=== PATIENT | male | born 2000 | race Caucasian/White ===

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

== ENCOUNTER 2023-10-05 21:19 | Emergency (ER) | payer MEDICAID, OTHER ==
[2023-10-05] MEDS: ONDANSETRON ODT 4 MG TABLET TL STA (22:22)
[2023-10-05] MEDS: SODIUM CHLORIDE 0.9% 1,000 ML IV STA (22:23)
[2023-10-05] MEDS: DROPERIDOL 5 MG/2 ML VIAL IVP STA (23:30)
[2023-10-05 23:44] VITALS: BP 140/65; O2SAT 96
[2023-10-06] MEDS ORDERED: PROMETHAZINE 25 MG/1 ML VIAL ONE (00:13)
[2023-10-06] MEDS: PROMETHAZINE INJ 25 MG in SODIUM CHLORIDE 0.9% 50 ML IV STA (00:16)
[2023-10-06] MEDS: SODIUM CHLORIDE 0.9% 1,000 ML IV STA (00:16)
--- NOTE | 2023-10-06 01:08 | ED Physician Documentation ---
PD HPI NVD - Stated complaint Stated Complaint: VOMITING - Chief complaint Chief Complaint: Abd Pain - History obtained from History obtained from: Patient - Additonal information Additional information: 23-year-old male presents by private vehicle from home for nausea, vomiting, generalized cramping abdominal pain since earlier this afternoon. No new or strange foods. States that similar thing happened 1 year ago. He was given IV fluids and antiemetics, diagnosed with dehydration, and sent home with antiemetics. Patient states this feels identical to when he was here 1 year ago. Review of Systems Constitutional: denies: Fever, Chills Cardiac: denies: Chest pain / pressure, Palpitations, Calf pain Respiratory: denies: Dyspnea, Cough, Wheezing GI: reports: Abdominal Pain, Nausea, Vomiting : denies: Dysuria, Frequency, Hesitancy PD PAST MEDICAL HISTORY - Past Medical History Cardiovascular: None Respiratory: None Endocrine/Autoimmune: None GI: None - Past Surgical History Past Surgical History: No - Present Medications Home Medications: Ambulatory Orders Medication Instructions Recorded Confirmed Ondansetron Odt [Zofran] 4 mg TL Q6H PRN #10 tablet 08/09/22 Promethazine Supp [Phenergan Supp] 25 mg NV Q6H PRN #3 supp 08/09/22 Ondansetron Odt [Zofran] 4 mg TL Q6H PRN #30 tablet 10/06/23 Promethazine [Phenergan] 25 mg PO Q6H PRN #10 tab 10/06/23 - Allergies Allergies/Adverse Reactions: Allergies Allergy/AdvReac Type Severity Reaction Status Date / Time No Known Drug Allergies Allergy Verified 10/05/23 21:23 - Social History Does the pt smoke?: No Smoking Status: Never smoker Does the pt drink ETOH?: No Does the pt have substance abuse?: No - Immunizations Immunizations are current?: Yes - POLST Patient has POLST: No PD ED PE NORMAL - Vitals Vital signs reviewed: Yes - General General: Alert and oriented X 3, Well developed/nourished, Other (Uncomfortable, nontoxic-appearing) - Cardiac Cardiac: RRR, Strong equal pulses - Abdomen Abdomen: Soft, Non tender, Non distended - Derm Derm: Normal color, Warm and dry, No rash - Extremities Extremities: No deformity, No tenderness to palpate, Normal ROM s pain - Neuro Neuro: Alert and oriented X 3, safety person 2-12 intact, No motor deficit, Normal speech - Psych Psych: Normal mood, Normal affect Results - Vitals Vitals: Vital Signs - 24 hr 10/05/23 10/05/23 21:23 23:40 Temperature 36.8 C Heart Rate 100 55 L Respiratory 16 18 Rate Blood Pressure 140/90 H 140/65 H O2 Saturation 100 96 Oxygen O2 Source Room air PD Medical Decision Making - ED course Complexity details: reviewed old records, reviewed results, re-evaluated patient, considered differential, d/w patient ED course: Uncomfortable but nontoxic patient presenting for nausea, vomiting, cramping abdominal pain. Abdomen is soft, no significant tenderness. Patient mildly retching into emesis bag. Due to symptoms only being present for several hours no indication at this time for labs or advanced imaging. IV fluids and antiemetics ordered. After several doses of antiemetics and IV fluids patient reported feeling much better and stated he was ready to go home. Antiemetics sent to pharmacy of choice. Patient offered note for work, which was declined. Departure - Departure Disposition: 01 Home, Self Care Clinical Impression: Vomiting Qualifiers: Vomiting type: unspecified Nausea presence: with nausea Qualified Code(s): R11.2 - Nausea with vomiting, unspecified Condition: Stable Instructions: ED Nausea Vomiting Prescriptions: Promethazine [Phenergan] 25 mg PO Q6H PRN #10 tab PRN Reason: Nausea / Vomiting Ondansetron Odt [Zofran] 4 mg TL Q6H PRN #30 tablet PRN Reason: Nausea / Vomiting Comments: Stick to a light diet over the next several days. Avoid heavy or fatty foods. Antinausea medication has been sent to the [facility] in [place]. Please follow-up with your primary care doctor. Forms: PCP List Discharge Date/Time: 10/06/23 01:22
== END 2023-10-06 01:22 | disposition home or self-care (01) ==
LOC: ED 21:19
DX: R11.2 Nausea with vomiting, unspecified (principal); R10.9 Unspecified abdominal pain
CPT/HCPCS: 36415; 96365; 96375; 99283; 99284; J7040; Q0162